=== PATIENT | female | born 1985 | race African-American/Black ===

== ENCOUNTER 2017-02-11 17:06 | Emergency (ER) | payer MEDICAID ==
[~2017-02-11] VITALS: Ht 157.5 cm; Wt 40.8 kg
[~2017-02-11 17:06] MED LIST: ASCO500T11 PO; HYDR200T PO; MULT1TAB95 PO; PERCOT PO; PRE5T PO
[2017-02-11 17:20] VITALS: BP 114/66
== END 2017-02-11 17:44 | disposition left against medical advice (07) ==
LOC: ER 17:09
DX: R04.0 Epistaxis (principal); Z53.21 Procedure and treatment not carried out due to patient leaving prior to being seen by health care provider